=== PATIENT | male | born 1995 ===

== ENCOUNTER 2017-10-20 18:48 | Emergency (ER) | payer MEDICAID, OTHER ==
--- NOTE | 2017-10-20 19:37 | C.PDOC ---
History Of Present Illness 22 yo male w/o significant PMHx come in for evaluation of fever, malaise, chills , bodyaches, sore throat. Pt admits, (+) sick contact similar sx house hold. Otherwise, pt denies severe headache, neck pain, rash, drooling, dysphagia, dyspnea, cough, CP, SOB, palpitation, abd. pain, V/D, UTI sx, denies recent travel. Ambulate to ED for evaluation, not in any apparent distress. Time Seen by Provider: 10/20/17 19:14 Chief Complaint (Nursing): Fever History Per: Patient History/Exam Limitations: no limitations Onset/Duration Of Symptoms: Days Current Symptoms Are (Timing): Still Present Location Of Pain: Throat, Diffuse Myalgias Sick Contacts (Context): Family Member(s) Past Medical History Reviewed: Historical Data, Nursing Documentation, Vital Signs Vital Signs: Last Vital Signs Temp 99.1 F 10/20/17 20:08 Pulse 103 H 10/20/17 20:08 Resp 20 10/20/17 20:08 BP 108/70 10/20/17 20:08 Pulse Ox 97 10/20/17 20:08 - Medical History PMH: Asthma Surgical History: No Surg Hx Family History: States: No Known Family Hx - Social History Hx Alcohol Use: No Hx Substance Use: No - Immunization History Hx Tetanus Toxoid Vaccination: No Hx Influenza Vaccination: No Hx Pneumococcal Vaccination: No Review Of Systems Except As Marked, All Systems Reviewed And Found Negative. Constitutional: Positive for: Fever, Chills, Malaise, Other (Bodyaches) ENT: Positive for: Throat Pain Cardiovascular: Negative for: Chest Pain, Palpitations Respiratory: Negative for: Cough, Shortness of Breath Gastrointestinal: Negative for: Vomiting, Abdominal Pain, Diarrhea Genitourinary: Negative for: Dysuria, Frequency, Incontinence Musculoskeletal: Negative for: Neck Pain Skin: Negative for: Rash Neurological: Negative for: Headache Physical Exam - Physical Exam Appears: Well, Non-toxic, No Acute Distress Skin: Normal Color, Warm, Dry, No Rash Head: Normacephalic Eye(s): bilateral: PERRL Ear(s): Bilateral: Normal Nose: No Flaring, No Discharge Oral Mucosa: Moist, No Drooling Tongue: Normal Appearing Lips: Normal Appearing Throat: Erythema (mod B/L with mild edema), Exudate (scattered B/L), No Drooling , Other (uvul a midline, no edema.) Neck: Trachea Midline, Supple Cardiovascular: Rhythm Regular Respiratory: No Decreased Breath Sounds, No Accessory Muscle Use, No Stridor, No Wheezing Gastrointestinal/Abdominal: Soft, No Tenderness, No Distention, No Guarding Back: No CVA Tenderness Extremity: Normal ROM, No Deformity, No Swelling Neurological/Psych: Oriented x3, Normal Speech ED Course And Treatment O2 Sat by Pulse Oximetry: 98 (RA) Pulse Ox Interpretation: Normal Progress Note: On re-eval, pt is afebrile, hemodynamicaly stable. NOn-toxic. Ambulatory in ED with stable gait. ENT: (+) exam c/w acute pharyngitis. uvula midline, no edema. neck: Supple, (-) meningeal sign. Lumgs: CTA B/L, BS equal B/L. ABd: benign, (-) guarding, (-) rebound. back: (-) CVA tenderness. Neurologicaly intact. Influenza (-). Pt advised on course of ds. ref. to F/U with PMD, ENT in 2-3 days for re-eval. return to ED if any worsening or new changes. Disposition Counseled Patient/Family Regarding: Studies Performed, Diagnosis, Need For Followup, Rx Given - Disposition Referrals: [facility] [Outside] Alan Orozco MD [Staff Provider] - Disposition: HOME/ ROUTINE Disposition Time: 20:28 Condition: STABLE Additional Instructions: Take medication as prescribed Encourage fluids Warm salty water throat gurgles Follow up with PMD, ENT IN 2-3 days for re-eav. return to ED if any new changes. Prescriptions: Amoxicillin/Clavulanate [Augmentin 875 MG-125 MG] 1 tab PO BID #14 tab Prednisone [Deltasone] 40 mg PO DAILY #6 tablet Instructions: Sore Throat, Adult (DC) Forms: [employer] ([employer]) - Clinical Impression Clinical Impression: Pharyngitis
[2017-10-20] MEDS ORDERED: Amoxicillin-Clav 875-125 mg Tab PO STA (19:48)
[2017-10-20] MEDS ORDERED: Amoxicillin-Clav 875-125 mg Tab PO ONE (20:07)
[2017-10-20 20:09] VITALS: BP 108/70; PULSE 103; RESP 20; TEMP 99.1
[2017-10-20 20:34] VITALS: O2SAT 98
== END 2017-10-20 20:37 | disposition home or self-care (01) ==
LOC: C.ER 18:48
DX: J02.9 Acute pharyngitis, unspecified (principal)